=== PATIENT | female | born 1945 | race African-American/Black ===

== ENCOUNTER 2022-11-21 15:17 | Emergency (ER) | payer MEDICARE, OTHER ==
[~2022-11-21] VITALS: Ht 165.1 cm; Wt 67.0 kg
[2022-11-21 16:31] VITALS: BP 121/102; O2SAT 100
[2022-11-21 20:19] VITALS: PULSE 95; RESP 18; TEMP 98.3
== END 2022-11-21 20:20 | disposition home or self-care (01) ==
LOC: ER 15:17
DX: H11.32 Conjunctival hemorrhage, left eye (principal); Z98.890 Other specified postprocedural states
CPT/HCPCS: 99281